=== PATIENT | female | born 1955 | race Caucasian/White ===

== ENCOUNTER 2016-12-21 13:15 | Inpatient (IN) | payer OTHER ==
[~2016-12-21] VITALS: Ht 160 cm; Wt 95.2 kg
[2016-12-21] MEDS ORDERED: ACETAMINOPHEN 500 MG TAB PO STA (13:49)
[2016-12-21] MEDS ORDERED: ONDANSETRON INJ 2 MG/ML 2 ML VIAL IV STA (13:49)
[2016-12-21] MEDS ORDERED: SODIUM CHLORIDE 0.9% 1000ML 1,000 ML IV STA (13:59)
[2016-12-21 14:36] LABS: ISTAT CREATININE 1.1 mg/dl (0.6-1.3); ISTAT HEMOGLOBIN 9.9 g/dl (12.0-16.0); ISTAT IONIZED CALCIUM 1.17 mmol/l (1.12-1.32)
[2016-12-21 14:38] LABS: PARTIAL THROMBOPLASTIN RATIO 0.9; PROTHROMBIN TIME (PATIENT) 10.8 SECONDS (9.0-12.0)
[2016-12-21 14:43] LABS: BUN/CREATININE RATIO 11.3 (10-20); CALCIUM 8.4 mg/dl (8.5-10.1); CREATININE 1.2 mg/dl (0.60-1.20); MAGNESIUM 1.9 mg/dl (1.8-2.4); POTASSIUM 4.2 mmol/L (3.5-5.1)
--- NOTE | 2016-12-21 14:49 | DIAGNOSTIC IMAGING REPORT ---
HEAD CT NONCONTRAST CT DOSE: 537.48 mGy.cm HISTORY: new seizure today, hx of colon CA, eval ICH, mets TECHNIQUE: Multiaxial CT images of the head were performed without the use of intravenous contrast. Automated exposure control was utilized for this study. Comparison: None. Findings: The paranasal sinuses and mastoid air cells are clear. The calvarium and skull base are intact. The ventricles and sulci are within normal limits. There is no mass, hematoma, midline shift, or acute infarct. Impression: No acute intracranial abnormality. If this is the patient's first reported seizure, then follow-up brain MRI is recommended for further evaluation. Electronically signed by: Adalberto Choe M.D. 12/21/2016 2:48 PM Dictated Date/Time: 12/21/2016 2:45 PM
[2016-12-21 14:54] LABS: PHOSPHORUS 1.6 mg/dl (2.5-4.9); THYROID STIMULATING HORMONE 5.36 uIu/ml (0.300-4.500)
[2016-12-21] MEDS ORDERED: PROMETHAZINE HCL INJ 25 MG/ML 1 ML VIAL IV STA (14:58)
[2016-12-21 15:00] LABS: ANISOCYTOSIS PRESENT; BASO % 0.5 %; BASO ABS # 0.01 K/uL (0-0.2); COMPLETE YES; EOS % 3.8 %; HEMATOCRIT 31.1 % (37-47); IG% 0.5 %; LYMPH % 36.3 %; LYMPH ABS # 0.77 K/uL (1.2-3.4); MEAN CORPUSCULAR HEMOGLOBIN 33.1 pg (25-34); MEAN CORPUSCULAR HGB CONC 33.1 g/dl (32-36); MONO % 7.5 %; NEUT % 51.4 %; PLATELET COUNT 87 K/uL (130-400); PLT ESTIMATE DECREASED; POLYCHROMASIA 1+; RED BLOOD COUNT 3.11 M/uL (4.2-5.4); WHITE BLOOD COUNT 2.12 K/uL (4.8-10.8)
[2016-12-21] MEDS ORDERED: MoRPHine SULFATE 10 MG/ML CARP/VIAL IV PRN (15:00)
--- NOTE | 2016-12-21 15:00 | DIAGNOSTIC IMAGING REPORT ---
SINGLE VIEW CHEST CLINICAL HISTORY: Seizure. History of pulmonary metastatic disease. FINDINGS: An AP, portable, upright chest radiograph is obtained. No prior studies are available for comparison at the time of dictation. The examination is degraded by portable technique and patient rotation. A left subclavian central venous infusion port is in place. The heart is top normal for projection. The pulmonary vasculature is noncongested. There is no airspace consolidation typical for pneumonia or pleural effusion. There are several pulmonary nodules measuring up to 2 cm. This is consistent with the reported clinical history of pulmonary metastatic disease. No pneumothorax is seen. The skeletal structures are osteopenic. The bony thorax is grossly intact. IMPRESSION: 1. No acute cardiopulmonary abnormality is seen. 2. There are numerous pulmonary nodules identified consistent with the reported clinical history of pulmonary metastatic disease. Electronically signed by: Zack Arita M.D. 12/21/2016 2:59 PM Dictated Date/Time: 12/21/2016 2:57 PM
--- NOTE | 2016-12-21 15:03 | EMERGENCY ROOM VISIT NOTE ---
History First contact with patient: 13:43 Chief Complaint: SEIZURE Stated Complaint: dizzy, seizure Nursing Triage Summary: Patient arrives via ALS from grandsons graduation with complaints of seizure like activity. According to ems the family stated she was stumbling and then collapsed onto football field. No seizure history. History of DM, and colon cancer - diagnosed in 2007 was in remission until 2016 and now metastasized; pt gets chemo every Friday. Patient was responsive but post ictal when ems arrived on scene. BSG from ems was 80. History of Present Illness The patient is a 61 year old female who presents to the Emergency Room with complaints of seizure that occurred approximately one hour ago. Seizure was witnessed by multiple family members, who states she was stumbling and not acting herself, when she began to collapse. She was caught by family members and lowered to the ground. Per family she was shaking all over her body, nonresponsive, episode lasted approximately 1 minute. Patient was confused for approximately 30 minutes after the seizure activity and amnestic to the event. She did bite her tongue during the episode, denies vomiting, denies urinary incontinence. No seizure history, this is a first-time seizure for this patient. Medical history significant for colon cancer and metastasis to the lungs, she is currently receiving chemotherapy every 2 weeks, last chemotherapy was 9 days ago. Patient complains of a headache and nausea. She denies vision changes, neck pain, chest pain, shortness of breath, abdominal pain, vomiting, diarrhea, urinary symptoms, fevers/chills, or recent illness. Review of Systems GENERAL: Denies fevers, chills, malaise, fatigue, unintentional weight changes. HEENT: Denies dizziness, visual problems, hearing loss, tinnitus. Denies difficulty swallowing or oral lesions. PULMONARY: Denies cough, shortness of breath, sputum production or hemoptysis. CARDIOVASCULAR: Denies chest pain, palpitations, dyspnea on exertion, orthopnea or peripheral edema. GASTROINTESTINAL: + Nausea. Denies diarrhea, constipation, vomiting, or abdominal pain. GENITOURINARY: Denies dysuria, frequency, urgency or nocturia. NEUROLOGIC: + Headache. Denies history of epilepsy, CVA, TIA or chronic headaches. MUSCULOSKELETAL: Denies history of joint tenderness/swelling. SKIN: Denies rashes or lesions. PSYCHIATRIC: Denies history of depression or mental illness. ENDOCRINE: Denies history of diabetes, thyroid disorders, abnormal hair growth or sexual dysfunction. Social History Smoking Status: Former Smoker Current/Historical Medications Scheduled Biotin (Biotin), 1,000 MCG PO DAILY Cholecalciferol (Vitamin D3), 2,000 UNITS PO QID Citalopram Hydrobromide (Citalopram Hydrobromide), 1 TAB PO QID Cyanocobalamin (Vitamin B-12), 2,500 MCG PO DAILY Folic Acid (Folic Acid), 400 MCG PO DAILY Glimepiride (Glimepiride), 1 TAB PO QID Metformin HCl (Metformin HCl), 500 MG PO QID Omeprazole (Prilosec), 20 MG PO QID Scheduled PRN Diphenoxylate/Atropine (Lomotil), 2 TAB PO QID PRN for Diarrhea Hydrocodone/Acetaminophen 7.5MG/325MG ([place] 7.5MG/325MG), 0.5 TAB PO Q6 PRN for Pain Lorazepam (Ativan), 0.5 MG PO QID PRN for Anxiety Meclizine Hcl (Meclizine Hcl), 1 TAB PO UD PRN for Nausea Miscellaneous Medications Bevacizumab (Avastin) Allergies Coded Allergies: Codeine (Unverified Allergy, Unknown, ., 12/21/16) Physical Exam Vital Signs Date Time Temp Pulse Resp B/P (MAP) Pulse Ox O2 Delivery O2 Flow Rate FiO2 12/21/16 20:10 76 16 173/72 96 Room Air 12/21/16 18:38 64 18 158/84 95 Room Air 12/21/16 17:18 64 18 166/78 95 12/21/16 15:22 69 18 189/94 100 Room Air 12/21/16 13:40 94 Room Air 12/21/16 13:28 73 12/21/16 13:24 36.9 81 18 149/125 98 Room Air Physical Exam CONSTITUTIONAL: No acute distress. Well appearing and well nourished. Alert and oriented X 4 with normal affect. GCS 15. HEENT: Normocephalic, atraumatic. Pupils equal, round and reactive to light, EOMI. TMs normal. Pharynx normal. Small superficial laceration left anterior tongue, no active bleeding. NECK: Supple, full active range of motion without discomfort. RESPIRATORY: Clear to auscultation bilaterally with no wheezing, crackles, rhonchi or stridor. Equal expansion bilaterally. CARDIOVASCULAR: Regular rate and rhythm with no murmurs, rubs or gallops. Normal peripheral perfusion. No edema. GASTROINTESTINAL: Soft, nontender, nondistended. Bowel sounds present in all quadrants. MUSCULOSKELETAL: Full range of motion of all joints without discomfort. INTEGUMENTARY: No rash or other significant dermatologic conditions noted. NEUROLOGIC: Cranial nerves II-XII grossly intact. No focal neurologic deficits noted. Normal strength, normal sensation, normal coordination. Medical Decision & Procedures ER Provider Diagnostic Interpretation: HEAD CT NONCONTRAST CT DOSE: 537.48 mGy.cm HISTORY: new seizure today, hx of colon CA, eval ICH, mets TECHNIQUE: Multiaxial CT images of the head were performed without the use of intravenous contrast. Automated exposure control was utilized for this study. Comparison: None. Findings: The paranasal sinuses and mastoid air cells are clear. The calvarium and skull base are intact. The ventricles and sulci are within normal limits. There is no mass, hematoma, midline shift, or acute infarct. Impression: No acute intracranial abnormality. If this is the patient's first reported seizure, then follow-up brain MRI is recommended for further evaluation. ----- MRI OF THE BRAIN COMBO CLINICAL HISTORY: New onset seizure. Reported history of metastatic colon cancer. COMPARISON STUDY: CT of the brain dated 12/21/2016. TECHNIQUE: MRI of the brain was performed utilizing various T1 and T2-weighted sequences in the axial, sagittal, and coronal planes. Contrast-enhanced sequences were acquired following the administration of 9.6 cc of Gadavist. The examination is performed using the seizure protocol. FINDINGS: Brain parenchyma: There are age-related involutional changes noting minimal subcortical and periventricular microangiopathic disease. There is no hemorrhage or mass effect. There is no restricted diffusion to suggest acute ischemia. No enhancing mass lesion is identified on the postcontrast images. Adams-white matter differentiation is preserved. No extra-axial fluid collection is seen. The cerebellar tonsils are normal in configuration. A developmental venous anomaly is incidentally noted in the right cerebellar hemisphere. The hippocampi are normal and symmetric. Ventricles, sulci, and cisterns: Prominent secondary to involutional change. Pituitary and sella: Unremarkable. Intracranial vasculature: Normal flow voids are maintained at the skull base. Orbits: The bony orbits are grossly intact. Orbital contents are normal in appearance. Sinuses and mastoids: There is a small retention cyst in the right maxillary antrum. The paranasal sinuses are otherwise clear. The mastoid air cells are well pneumatized. Calvarium: Unremarkable. Cervical cord: Partially visualized cervical spinal cord is normal in morphology and signal intensity. IMPRESSION: No acute intracranial abnormality. Specifically, there is no evidence of intracranial metastatic disease. Laboratory Results 12/21/16 14:17 Red Blood Count 3.11, Mean Corpuscular Volume 100.0, Mean Corpuscular Hemoglobin 33.1, Mean Corpuscular Hemoglobin Concent 33.1, Neutrophils (%) (Auto ) 51.4, Lymphocytes (%) (Auto) 36.3, Monocytes (%) (Auto) 7.5, Eosinophils (%) ( Auto) 3.8, Basophils (%) (Auto) 0.5, Neutrophils # (Auto) 1.09, Lymphocytes # ( Auto) 0.77, Monocytes # (Auto) 0.16, Eosinophils # (Auto) 0.08, Basophils # ( Auto) 0.01 12/21/16 14:17 Test 12/21/16 14:17 12/21/16 14:21 12/21/16 16:35 12/21/16 20:03 White Blood Count 2.12 K/uL (4.8-10.8) Red Blood Count 3.11 M/uL (4.2-5.4) Hemoglobin 10.3 g/dL (12.0-16.0) Hematocrit 31.1 % (37-47) Mean Corpuscular Volume 100.0 fL (80-100) Mean Corpuscular Hemoglobin 33.1 pg (25-34) Mean Corpuscular Hemoglobin Concent 33.1 g/dl (32-36) Platelet Count 87 K/uL (130-400) Neutrophils (%) (Auto) 51.4 % Lymphocytes (%) (Auto) 36.3 % Monocytes (%) (Auto) 7.5 % Eosinophils (%) (Auto) 3.8 % Basophils (%) (Auto) 0.5 % Neutrophils # (Auto) 1.09 K/uL (1.4-6.5) Lymphocytes # (Auto) 0.77 K/uL (1.2-3.4) Monocytes # (Auto) 0.16 K/uL (0.11-0.59) Eosinophils # (Auto) 0.08 K/uL (0-0.5) Basophils # (Auto) 0.01 K/uL (0-0.2) RDW Standard Deviation 53.5 fL (36.4-46.3) RDW Coefficient of Variation 14.9 % (11.5-14.5) Immature Granulocyte % (Auto) 0.5 % Immature Granulocyte # (Auto) 0.01 K/uL (0.00-0.02) Platelet Estimate DECREASED Polychromasia 1+ Anisocytosis PRESENT Macrocytosis PRESENT Prothrombin Time 10.8 SECONDS (9.0-12.0) Prothromb Time International Ratio 1.0 (0.9-1.1) Activated Partial Thromboplast Time 24.6 SECONDS (21.0-31.0) Partial Thromboplastin Ratio 0.9 Est Creatinine Clear Calc Drug Dose 52.9 ml/min Estimated GFR () 55.7 Estimated GFR (Non- 48.1 BUN/Creatinine Ratio 11.3 (10-20) Calcium Level 8.4 mg/dl (8.5-10.1) Phosphorus Level 1.6 mg/dl (2.5-4.9) Magnesium Level 1.9 mg/dl (1.8-2.4) Total Bilirubin 0.6 mg/dl (0.2-1) Direct Bilirubin 0.1 mg/dl (0-0.2) Aspartate Amino Transf (AST/SGOT) 30 U/L (15-37) Alanine Aminotransferase (ALT/SGPT) 26 U/L (12-78) Alkaline Phosphatase 76 U/L (45-117) Total Protein 6.3 gm/dl (6.4-8.2) Albumin 3.2 gm/dl (3.4-5.0) Thyroid Stimulating Hormone (TSH) 5.360 uIu/ml (0.300-4.500) Bedside Hemoglobin 9.9 g/dl (12.0-16.0) Bedside Hematocrit 29 % (37-47) Bedside Sodium 141 mEq/L (135-144) Bedside Potassium 4.0 mEq/L (3.3-5.0) Bedside Chloride 106 mEq/L (101-112) Bedside Total CO2 23 mEq/l (24-31) Anion Gap 18.0 mmol/L (16-25) Bedside Blood Urea Nitrogen 14 mg/dl (7-18) Bedside Creatinine 1.1 mg/dl (0.6-1.3) Bedside Glucose (other) 88 mg/dl (70-99) Bedside Ionized Calcium (Rajani) 1.17 mmol/l (1.12-1.32) Urine Color YELLOW Urine Appearance CLEAR (CLEAR) Urine pH 6.5 (4.5-7.5) Urine Specific [place] 1.011 (1.000-1.030) Urine Protein 2+ (NEG) Urine Glucose (UA) NEG (NEG) Urine Ketones NEG (NEG) Urine Occult Blood 2+ (NEG) Urine Nitrite NEG (NEG) Urine Bilirubin NEG (NEG) Urine Urobilinogen NEG (NEG) Urine Leukocyte Esterase NEG (NEG) Urine WBC (Auto) 1-5 /hpf (0-5) Urine RBC (Auto) 10-30 /hpf (0-4) Urine Hyaline Casts (Auto) 1-5 /lpf (0-5) Urine Epithelial Cells (Auto) 20-30 /lpf (0-5) Urine Bacteria (Auto) NEG (NEG) Bedside Glucose 67 mg/dl (70-90) Medications Administered Medications (Trade) Dose Ordered Sig/Scott Route Start Time Stop Time Status Last Admin Dose Admin Ondansetron HCl (Zofran Inj) 4 mg NOW STAT IV 12/21/16 13:49 12/21/16 14:00 DC 12/21/16 14:21 4 MG Acetaminophen (Tylenol Tab) 1,000 mg NOW STAT PO 12/21/16 13:49 12/21/16 14:00 DC 12/21/16 14:22 1,000 MG Sodium Chloride 1,000 ml @ 999 mls/hr Q1H1M STAT IV 12/21/16 13:59 12/21/16 14:59 DC 12/21/16 14:21 999 MLS/HR Promethazine HCl (Phenergan Inj) 12.5 mg NOW STAT IV 12/21/16 14:58 12/21/16 15:00 DC 12/21/16 14:58 12.5 MG Morphine Sulfate (MoRPHine SULFATE INJ) 6 mg Q1H PRN IV 12/21/16 15:00 12/21/16 22:25 DC 12/21/16 15:18 6 MG Ketorolac Tromethamine (Toradol Inj) 15 mg NOW STAT IV 12/21/16 19:53 12/21/16 19:55 DC 12/21/16 19:59 15 MG ECG Indication: altered mental status (seizure) Rate (beats per minute): 68 Rhythm: normal sinus Findings: no acute ischemic change Medical Decision CC: Patient presenting with complaint of seizure Interpretation of Labs: pancytopenia (suspected secondary to active chemotherapy treatment), not neutropenic, no significant electrolyte abnormalities, renal function within normal limits, normal liver function, no UTI. Medication Reconciliation: I attest that I have personally reviewed the patient' s current medication list. Vital signs review: I reviewed the patient's vital signs and interpret them as follows: T: Afebrile; BP: Hypertensive; HR: WNL; RR: WNL; Pulse Ox: WNL. Blood pressure screening: The patient was found to have an elevated blood pressure and was encouraged to follow with her primary doctor for recheck and further treatment upon discharge from the hospital. Differential Diagnosis: Includes, but not limited to new onset seizure, electrolyte imbalance, dehydration, syncope, ICH, brain metastasis, mass effect Summary of ED Course: Patient was evaluated at bedside, history of physical exam performed. She has a known history of Colon CA with mets to the lungs, on chemotherapy. She is alert and oriented, no focal deficits noted on exam. Pt is returned to her mental status baseline per family. GCS is 15. She is complaining of a headache and persistent nausea since the seizure. Orders were placed at bedside for labs, UA, tylenol and zofran to treat headache and nausea, CT of the head to evaluate for ICH, mass effect. Patient discussed with Dr. Matthews, who agrees with my assessment and plan. On reassessment, patient continues to complain of severe headache and nausea. Morphine and Phenergan ordered by Dr. Matthews. Labs reviewed, as above, no apparent acute abnormalities CT of the head reviewed, no acute abnormalities noted. Call placed to [facility] at 4:35pm. I spoke with Dr. Dietz, [facility] insulation sprayer, who recommends brain MRI with and without contrast MRI results reviewed, no acute abnormalities. Specifically no evidence of metastatic disease. Discussed with Dr. Matthews, feel the patient is high risk due to complex medical history, will admit for evaluation by neurology to further evaluate the seizure. Pt prefers to be transferred to [facility], however they are on diversion and are not accepting any transfers at this time. Will admit to [facility] Hospitalist service , Dr. Whitfield. I discussed with the patient and her family, she is agreeable to this plan. Patient reassessed multiple times throughout ED stay, her headache and nausea greatly improved after morphine and phenergan. She did have some hypoglycemia on repeat POC glucose, she was given something to eat and drink. Pt stable at time of admission. Impression Primary Impression: New onset seizure Departure Information Referrals Nora Rosa D.O. (PCP) Patient Instructions My [facility]
--- NOTE | 2016-12-21 15:09 | EMERGENCY ROOM VISIT NOTE ---
ED Visit Note First contact with patient: 13:43 61-year-old female with history of colon metastasis was fully evaluated by Jamila Oliver NP. Please see her note. I also independently evaluated the patient. The patient is here after a seizure. She continues to complain of nausea and vomiting. She also complains of a headache. Multiple labs and imaging were evaluated.
[2016-12-21 17:04] LABS: URINE APPEARANCE CLEAR (CLEAR); URINE BILIRUBIN NEG (NEG); URINE COLOR YELLOW; URINE EPITHELIAL CELL AUTO 20-30 /lpf (0-5); URINE NITRITE NEG (NEG); URINE PH 6.5 (4.5-7.5); URINE SPECIFIC GRAVITY 1.011 (1.000-1.030); UROBILINOGEN NEG (NEG)
[2016-12-21 17:11] LABS: MANUAL MICROSCOPIC REQUIRED? NO
[2016-12-21 17:31] LABS: REVIEW REQ? YES
[2016-12-21] MEDS ORDERED: GLC500 PO (17:37)
[2016-12-21] MEDS ORDERED: CYAN1SUB12 PO (17:37)
[2016-12-21] MEDS ORDERED: BIOT1TAB5 PO (17:37)
[2016-12-21] MEDS ORDERED: HYDR-3983 PO (17:37)
[2016-12-21] MEDS ORDERED: PRLSR20 PO (17:37)
[2016-12-21] MEDS ORDERED: GLIM4TAB2 PO (17:37)
[2016-12-21] MEDS ORDERED: CITA10TA4 PO (17:37)
[2016-12-21] MEDS ORDERED: MECL1TAB42 PO (17:37)
[2016-12-21] MEDS ORDERED: CHOL20007 PO (17:37)
[2016-12-21] MEDS ORDERED: LORA-741 PO (17:37)
[2016-12-21] MEDS ORDERED: DIPH-416 PO (17:37)
[2016-12-21] MEDS ORDERED: FLV400 PO (17:37)
[2016-12-21] MEDS ORDERED: AVSI100 (17:53)
--- NOTE | 2016-12-21 18:32 | DIAGNOSTIC IMAGING REPORT ---
MRI OF THE BRAIN COMBO CLINICAL HISTORY: New onset seizure. Reported history of metastatic colon cancer. COMPARISON STUDY: CT of the brain dated 12/21/2016. TECHNIQUE: MRI of the brain was performed utilizing various T1 and T2-weighted sequences in the axial, sagittal, and coronal planes. Contrast-enhanced sequences were acquired following the administration of 9.6 cc of Gadavist. The examination is performed using the seizure protocol. FINDINGS: Brain parenchyma: There are age-related involutional changes noting minimal subcortical and periventricular microangiopathic disease. There is no hemorrhage or mass effect. There is no restricted diffusion to suggest acute ischemia. No enhancing mass lesion is identified on the postcontrast images. Adams-white matter differentiation is preserved. No extra-axial fluid collection is seen. The cerebellar tonsils are normal in configuration. A developmental venous anomaly is incidentally noted in the right cerebellar hemisphere. The hippocampi are normal and symmetric. Ventricles, sulci, and cisterns: Prominent secondary to involutional change. Pituitary and sella: Unremarkable. Intracranial vasculature: Normal flow voids are maintained at the skull base. Orbits: The bony orbits are grossly intact. Orbital contents are normal in appearance. Sinuses and mastoids: There is a small retention cyst in the right maxillary antrum. The paranasal sinuses are otherwise clear. The mastoid air cells are well pneumatized. Calvarium: Unremarkable. Cervical cord: Partially visualized cervical spinal cord is normal in morphology and signal intensity. IMPRESSION: No acute intracranial abnormality. Specifically, there is no evidence of intracranial metastatic disease. Electronically signed by: Zack Arita M.D. 12/21/2016 6:30 PM Dictated Date/Time: 12/21/2016 6:26 PM
[2016-12-21] MEDS ORDERED: KETOROLAC TROMETHAMINE 30 MG/ML VIAL IV STA (19:53)
[2016-12-21] MEDS ORDERED: ACETAMINOPHEN 325 MG TAB PO PRN (20:45)
[2016-12-21] MEDS ORDERED: HYDROCODONE/ACETAMINOPHEN 7.5/325MG TAB PO PRN (20:45)
[2016-12-21] MEDS ORDERED: LORAZEPAM 0.5 MG TAB PO PRN (20:45)
[2016-12-21] MEDS ORDERED: MECLIZINE HCL 25 MG TAB PO PRN (20:45)
[2016-12-21] MEDS ORDERED: NITROGLYCERIN 0.4 MG SL PER TAB CHARGE SL PRN (20:45)
[2016-12-21] MEDS ORDERED: DIPHENOXYLATE/ATROPINE 2.5/0.025MG TAB PO PRN (20:45)
[2016-12-21] MEDS ORDERED: GLUCOSE 40% GEL 15 GM TUBE PO PRN (21:30)
[2016-12-21] MEDS ORDERED: GLUCAGON FOR INJ 1 MG VIAL SQ PRN (21:30)
[2016-12-21] MEDS ORDERED: DEXTROSE 50% 50 ML SYR IV PRN (21:30)
[2016-12-21] MEDS ORDERED: GLUCOSE 10 TABS/TUBE PO PRN (21:30)
[2016-12-21] MEDS ORDERED: ONDANSETRON INJ 2 MG/ML 2 ML VIAL IV PRN (21:30)
--- NOTE | 2016-12-21 21:43 | History and Physical ---
History & Physical Date & Time of Service: Dec 21, 2016 at 21:29 Chief Complaint: dizzy, seizure Primary Care Physician: Nora Rosa D.O. 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 When her daughter went to the patient's side, she noticed her to be pale, her eyes rolled back in her head, her son-in-law gradually lowered her to the ground, and she then went in to an interval of shaking. She has not had any previous occurrence of seizures. She did not have any loss of bowel or bladder control. This time in the emergency department she feels a bit tired but otherwise normal. She has not had any intervals of illness prior to this as predisposing factors. She has not had any recent trauma, any recent travel or sick exposures. Her last chemotherapy was 8 days ago. She is also developed some generalized headaches, and reports that both headaches and seizures were on of the side effects that she was warned about regarding her present chemotherapy. Social History Smoking Status: Former Smoker Smokeless Tobacco Use: No Alcohol Use: none Drug Use: none Marital Status: Housing status: lives with family Multi-Drug Resistant Organisms History of MDRO: No Allergies Coded Allergies: Codeine (Unverified Allergy, Unknown, ., 12/21/16) Home Medications Scheduled Biotin (Biotin), 1,000 MCG PO DAILY Cholecalciferol (Vitamin D3), 2,000 UNITS PO QID Citalopram Hydrobromide (Citalopram Hydrobromide), 1 TAB PO QID Cyanocobalamin (Vitamin B-12), 2,500 MCG PO DAILY Folic Acid (Folic Acid), 400 MCG PO DAILY Glimepiride (Glimepiride), 1 TAB PO QID Metformin HCl (Metformin HCl), 500 MG PO QID Omeprazole (Prilosec), 20 MG PO QID Scheduled PRN Diphenoxylate/Atropine (Lomotil), 2 TAB PO QID PRN for Diarrhea Hydrocodone/Acetaminophen 7.5MG/325MG ([place] 7.5MG/325MG), 0.5 TAB PO Q6 PRN for Pain Lorazepam (Ativan), 0.5 MG PO QID PRN for Anxiety Meclizine Hcl (Meclizine Hcl), 1 TAB PO UD PRN for Nausea Miscellaneous Medications Bevacizumab (Avastin) Review of Systems The patient denies chest pain, palpitations, shortness of breath, cough, lower extremity swelling, vision change, hearing change, sore throat, fevers, chills, sweats, weight change, nausea, vomiting, abdominal pain, pelvic pain, blood in urine or stool, dysuria, urinary frequency or urgency, lightheadedness, dizziness, memory loss, rash, abnormal bruising or bleeding, imbalance, focal or generalized weakness, numbness or tingling in arms or legs, arthralgias or myalgias, back or neck pain, night sweats, or allergy symptoms. The review of systems is otherwise negative other than for that already noted above, and at least 10 systems have been reviewed. Physical Exam Vital Signs Date Time Temp Pulse Resp B/P (MAP) Pulse Ox O2 Delivery O2 Flow Rate FiO2 12/21/16 20:10 76 16 173/72 96 Room Air 12/21/16 18:38 64 18 158/84 95 Room Air 12/21/16 17:18 64 18 166/78 95 12/21/16 15:22 69 18 189/94 100 Room Air 12/21/16 13:40 94 Room Air 12/21/16 13:28 73 12/21/16 13:24 36.9 81 18 149/125 98 Room Air The patient is awake, well-developed and adequately nourished, alert and oriented 3, normocephalic and atraumatic, lying in bed and in no acute distress. HEENT--PERRL, EOMI, mucous membranes and oropharynx normal. Neck--supple, no JVD or bruits, thyroid normal, trachea midline, no adenopathy. Heart--normal S1 and S2, no extra beats, no murmurs, rubs or gallops. Lungs--clear bilaterally but diminished throughout, no respiratory distress, no accessory muscle use. Abdomen--normal bowel sounds and soft, nontender and nondistended, no hernias or masses, no organomegaly and morbidly obese. Extremities--no cyanosis, clubbing or edema. There are good distal pulses b/l. Dermatologic--normal skin turgor, normal color, warm and dry, no abnormal lymph nodes, no rash. Neurologic--cranial nerves II through XII grossly intact, motor and sensory examination normal. Rheumatologic--normal range of motion, nontender, muscles and joints. Psychiatric--normal affect. Diagnostics Laboratory Results Results Past 24 Hours Test 12/21/16 14:16 12/21/16 14:17 12/21/16 14:21 12/21/16 16:35 Range/Units Bedside Glucose 89 70-90 mg/dl White Blood Count 2.12 4.8-10.8 K/uL Red Blood Count 3.11 4.2-5.4 M/uL Hemoglobin 10.3 12.0-16.0 g/dL Hematocrit 31.1 37-47 % Mean Corpuscular Volume 100.0 80-100 fL Mean Corpuscular Hemoglobin 33.1 25-34 pg Mean Corpuscular Hemoglobin Concent 33.1 32-36 g/dl Platelet Count 87 130-400 K/uL Neutrophils (%) (Auto) 51.4 % Lymphocytes (%) (Auto) 36.3 % Monocytes (%) (Auto) 7.5 % Eosinophils (%) (Auto) 3.8 % Basophils (%) (Auto) 0.5 % Neutrophils # (Auto) 1.09 1.4-6.5 K/uL Lymphocytes # (Auto) 0.77 1.2-3.4 K/uL Monocytes # (Auto) 0.16 0.11-0.59 K/uL Eosinophils # (Auto) 0.08 0-0.5 K/uL Basophils # (Auto) 0.01 0-0.2 K/uL RDW Standard Deviation 53.5 36.4-46.3 fL RDW Coefficient of Variation 14.9 11.5-14.5 % Immature Granulocyte % (Auto) 0.5 % Immature Granulocyte # (Auto) 0.01 0.00-0.02 K/uL Platelet Estimate DECREASED Polychromasia 1+ Anisocytosis PRESENT Macrocytosis PRESENT Prothrombin Time 10.8 9.0-12.0 SECONDS Prothromb Time International Ratio 1.0 0.9-1.1 Activated Partial Thromboplast Time 24.6 21.0-31.0 SECONDS Partial Thromboplastin Ratio 0.9 Sodium Level 143 136-145 mmol/L Potassium Level 4.2 3.5-5.1 mmol/L Chloride Level 110 98-107 mmol/L Carbon Dioxide Level 24 21-32 mmol/L Anion Gap 9.0 18.0 16-25 mmol/L Blood Urea Nitrogen 14 7-18 mg/dl Creatinine 1.20 0.60-1.20 mg/dl Est Creatinine Clear Calc Drug Dose 52.9 ml/min Estimated GFR () 55.7 Estimated GFR (Non- 48.1 BUN/Creatinine Ratio 11.3 10-20 Random Glucose 88 70-99 mg/dl Calcium Level 8.4 8.5-10.1 mg/dl Phosphorus Level 1.6 2.5-4.9 mg/dl Magnesium Level 1.9 1.8-2.4 mg/dl Total Bilirubin 0.6 0.2-1 mg/dl Direct Bilirubin 0.1 0-0.2 mg/dl Aspartate Amino Transf (AST/SGOT) 30 15-37 U/L Alanine Aminotransferase (ALT/SGPT) 26 12-78 U/L Alkaline Phosphatase 76 45-117 U/L Total Protein 6.3 6.4-8.2 gm/dl Albumin 3.2 3.4-5.0 gm/dl Thyroid Stimulating Hormone (TSH) 5.360 0.300-4.500 uIu/ml Bedside Hemoglobin 9.9 12.0-16.0 g/dl Bedside Hematocrit 29 37-47 % Bedside Sodium 141 135-144 mEq/L Bedside Potassium 4.0 3.3-5.0 mEq/L Bedside Chloride 106 101-112 mEq/L Bedside Total CO2 23 24-31 mEq/l Bedside Blood Urea Nitrogen 14 7-18 mg/dl Bedside Creatinine 1.1 0.6-1.3 mg/dl Bedside Glucose (other) 88 70-99 mg/dl Bedside Ionized Calcium (Rajani) 1.17 1.12-1.32 mmol/l Urine Color YELLOW Urine Appearance CLEAR CLEAR Urine pH 6.5 4.5-7.5 Urine Specific [place] 1.011 1.000-1.030 Urine Protein 2+ NEG Urine Glucose (UA) NEG NEG Urine Ketones NEG NEG Urine Occult Blood 2+ NEG Urine Nitrite NEG NEG Urine Bilirubin NEG NEG Urine Urobilinogen NEG NEG Urine Leukocyte Esterase NEG NEG Urine WBC (Auto) 1-5 0-5 /hpf Urine RBC (Auto) 10-30 0-4 /hpf Urine Hyaline Casts (Auto) 1-5 0-5 /lpf Urine Epithelial Cells (Auto) 20-30 0-5 /lpf Urine Bacteria (Auto) NEG NEG Test 12/21/16 20:03 Range/Units Bedside Glucose 67 70-90 mg/dl Diagnostic Radiology Patient Name: BRYAN KONG Unit Number: [id number] Dictated: 12/21/161456 Transcribed: 12/21/161456 EV Printed Date/Time: [~ rep prt dt]/[~ rep prt tm] [~ rep ct labl] - [~ rep ct ivnm] [facility] Radiology Department [place], [place] [id number] Dictated: 12/21/161456 Transcribed: 12/21/161456 EV Printed Date/Time: [~ rep prt dt]/[~ rep prt tm] [~ rep ct labl] - [~ rep ct ivnm] [~ rep ct add3]] SINGLE VIEW CHEST CLINICAL HISTORY: Seizure. History of pulmonary metastatic disease. FINDINGS: An AP, portable, upright chest radiograph is obtained. No prior studies are available for comparison at the time of dictation. The examination is degraded by portable technique and patient rotation. A left subclavian central venous infusion port is in place. The heart is top normal for projection. The pulmonary vasculature is noncongested. There is no airspace consolidation typical for pneumonia or pleural effusion. There are several pulmonary nodules measuring up to 2 cm. This is consistent with the reported clinical history of pulmonary metastatic disease. No pneumothorax is seen. The skeletal structures are osteopenic. The bony thorax is grossly intact. IMPRESSION: 1. No acute cardiopulmonary abnormality is seen. 2. There are numerous pulmonary nodules identified consistent with the reported clinical history of pulmonary metastatic disease. Electronically signed by: Zack Arita M.D. 12/21/2016 2:59 PM Dictated Date/Time: 12/21/2016 2:57 PM The status of this report is Signed. Draft = Not yet reviewed or approved by Radiologist. Signed = Reviewed and approved by Radiologist. <AttendingPhy></AttendingPhy> <FamilyPhy>Nora Rosa D.O.</FamilyPhy> < PrimaryPhy>Nora Rosa D.O.</PrimaryPhy> <UnitNumber>[id number]</ UnitNumber> <VisitNumber>[id number]</VisitNumber> <PatientName>BRYAN KONG</PatientName> <DateOfBirth>1955</DateOfBirth> <Location>[facility]</ Location> <ServiceDate>12/21/16</ServiceDate> <MNE>ESINDI</MNE> <OrderingPhy> Jamila Oliver STAFF PHYSICAL THERAPIST</OrderingPhy> <OrderingPhyMNE>f rep ord dr dyer</ OrderingPhyMNE> <DictatingPhyMNE>f rep dict dr dyer</DictatingPhyMNE> <CCListMNE> f rep ct mne</CCListMNE> <AdmittingPhyMNE>f pt admit dr dyer</AdmittingPhyMNE> < AttendingPhyMNE>f pt attend dr dyer</AttendingPhyMNE> <ConsultingPhyMNE>f pt consult dr dyer</ConsultingPhyMNE> <FamilyPhyMNE>f pt fam dr dyer</FamilyPhyMNE> <OtherPhyMNE>f pt other dr dyer</OtherPhyMNE> < PrimaryPhyMNE>f pt prim care dr dyer</PrimaryPhyMNE> <ReferringPhyMNE>f pt referring dr dyer</ReferringPhyMNE> Patient Name: BRYAN KONG Unit Number: [id number] Dictated: 12/21/161444 Transcribed: 12/21/161444 [facility] Printed Date/Time: [~ rep prt dt]/[~ rep prt tm] [~ rep ct labl] - [~ rep ct ivnm] [facility] [place] [address] Dictated: 12/21/161444 Transcribed: 12/21/161444 [employer] Printed Date/Time: [~ rep prt dt]/[~ rep prt tm] [~ rep ct labl] - [~ rep ct ivnm] [~ rep ct add3]] HEAD CT NONCONTRAST CT DOSE: 537.48 mGy.cm HISTORY: new seizure today, hx of colon CA, eval ICH, mets TECHNIQUE: Multiaxial CT images of the head were performed without the use of intravenous contrast. Automated exposure control was utilized for this study. Comparison: None. Findings: The paranasal sinuses and mastoid air cells are clear. The calvarium and skull base are intact. The ventricles and sulci are within normal limits. There is no mass, hematoma, midline shift, or acute infarct. Impression: No acute intracranial abnormality. If this is the patient's first reported seizure, then follow-up brain MRI is recommended for further evaluation. Electronically signed by: Adalberto hCoe M.D. 12/21/2016 2:48 PM Dictated Date/Time: 12/21/2016 2:45 PM The status of this report is Signed. Draft = Not yet reviewed or approved by Radiologist. Signed = Reviewed and approved by Radiologist. <AttendingPhy></AttendingPhy> <FamilyPhy>Nora Rosa D.O.</FamilyPhy> < PrimaryPhy>Nora Rosa D.O.</PrimaryPhy> <UnitNumber>[id number]</ UnitNumber> <VisitNumber>[id number]</VisitNumber> <PatientName>BRYAN KONG</PatientName> <DateOfBirth>1955</DateOfBirth> <Location>[facility]</ Location> <ServiceDate>12/21/16</ServiceDate> <MNE>ESINDI</MNE> <OrderingPhy> Jamila Oliver</OrderingPhy> <OrderingPhyMNE>f rep ord dr dyer</ OrderingPhyMNE> <DictatingPhyMNE>f rep dict dr dyer</DictatingPhyMNE> <CCListMNE> f rep ct manisha</CCListMNE> <AdmittingPhyMNE>f pt admit dr dyer</AdmittingPhyMNE> < AttendingPhyMNE>f pt attend dr dyer</AttendingPhyMNE> <ConsultingPhyMNE>f pt consult dr dyer</ConsultingPhyMNE> <FamilyPhyMNE>f pt fam dr dyer</FamilyPhyMNE> <OtherPhyMNE>f pt other dr dyer</OtherPhyMNE> < PrimaryPhyMNE>f pt prim care dr dyer</PrimaryPhyMNE> <ReferringPhyMNE>f pt referring dr dyer</ReferringPhyMNE> Patient Name: BRYAN KONG Unit Number: [id number] Dictated: 12/21/161825 Transcribed: 12/21/161825 EV Printed Date/Time: [~ rep prt dt]/[~ rep prt tm] [~ rep ct labl] - [~ rep ct ivnm] [facility] [place] [address] Dictated: 12/21/161825 Transcribed: 12/21/161825 EV Printed Date/Time: [~ rep prt dt]/[~ rep prt tm] [~ rep ct labl] - [~ rep ct ivnm] MRI OF THE BRAIN COMBO CLINICAL HISTORY: New onset seizure. Reported history of metastatic colon cancer. COMPARISON STUDY: CT of the brain dated 12/21/2016. TECHNIQUE: MRI of the brain was performed utilizing various T1 and T2-weighted sequences in the axial, sagittal, and coronal planes. Contrast-enhanced sequences were acquired following the administration of 9.6 cc of Gadavist. The examination is performed using the seizure protocol. FINDINGS: Brain parenchyma: There are age-related involutional changes noting minimal subcortical and periventricular microangiopathic disease. There is no hemorrhage or mass effect. There is no restricted diffusion to suggest acute ischemia. No enhancing mass lesion is identified on the postcontrast images. Adams-white matter differentiation is preserved. No extra-axial fluid collection is seen. The cerebellar tonsils are normal in configuration. A developmental venous anomaly is incidentally noted in the right cerebellar hemisphere. The hippocampi are normal and symmetric. Ventricles, sulci, and cisterns: Prominent secondary to involutional change. Pituitary and sella: Unremarkable. Intracranial vasculature: Normal flow voids are maintained at the skull base. Orbits: The bony orbits are grossly intact. Orbital contents are normal in appearance. Sinuses and mastoids: There is a small retention cyst in the right maxillary antrum. The paranasal sinuses are otherwise clear. The mastoid air cells are well pneumatized. Calvarium: Unremarkable. Cervical cord: Partially visualized cervical spinal cord is normal in morphology and signal intensity. IMPRESSION: No acute intracranial abnormality. Specifically, there is no evidence of intracranial metastatic disease. Electronically signed by: Zack Arita M.D. 12/21/2016 6:30 PM Dictated Date/Time: 12/21/2016 6:26 PM The status of this report is Signed. Draft = Not yet reviewed or approved by Radiologist. Signed = Reviewed and approved by Radiologist. <AttendingPhy></AttendingPhy> <FamilyPhy>Nora Rosa D.O.</FamilyPhy> < PrimaryPhy>Nora Rosa D.O.</PrimaryPhy> <UnitNumber>[id number]</ UnitNumber> <VisitNumber>[id number]</VisitNumber> <PatientName>BRYAN KONG</PatientName> <DateOfBirth>1955</DateOfBirth> <Location>[facility]</ Location> <ServiceDate>12/21/16</ServiceDate> <MNE>ESINDI</MNE> <OrderingPhy> Jamila Oliver STAFF PHYSICAL THERAPIST</OrderingPhy> <OrderingPhyMNE>f rep ord dr dyer</ OrderingPhyMNE> <DictatingPhyMNE>f rep dict dr dyer</DictatingPhyMNE> <CCListMNE> f rep ct manisha</CCListMNE> <AdmittingPhyMNE>f pt admit dr dyer</AdmittingPhyMNE> < AttendingPhyMNE>f pt attend dr dyer</AttendingPhyMNE> <ConsultingPhyMNE>f pt consult dr dyer</ConsultingPhyMNE> <FamilyPhyMNE>f pt fam dr dyer</FamilyPhyMNE> <OtherPhyMNE>f pt other dr dyer</OtherPhyMNE> < PrimaryPhyMNE>f pt prim care dr dyer</PrimaryPhyMNE> <ReferringPhyMNE>f pt referring dr dyer</ReferringPhyMNE> EKG EKG shows normal sinus rhythm at 68 bpm, there are no acute ST-T changes. Impression Assessment and Plan New onset seizure activity--patient underwent CT of the head and MRI the brain , both of which were normal, in particular did not show signs of metastatic disease. Since this is her first seizure, she would not be placed on any seizure medications. If she has a recurrent seizure overnight, will start Keppra IV. She'll be followed on telemetry for arrhythmia, frequent neurovascular checks, and seizure precautions. Consult neurology. Colon cancer with metastases to lung--her primary doctors are in [place]. Last chemotherapy was 8 days ago, she has follow-up appointments scheduled. No active issue at this time regarding this admission. Diabetes mellitus--continue glimepiride [address] on Accu- Cheks before meals and at bedtime with NovoLog coverage per scale. Depression/anxiety--continue citalopram and lorazepam. GERD--change omeprazole to pantoprazole per formulary interchange. Level of Care Telemetry Advanced Directives Existing Advance Directive: No Existing Living Will: No Existing Power of City Planning Aide: No Resuscitation Status FULL RESUSCITATION VTE Prophylaxis VTE Risk Assessment Done? Y/N: Yes Risk Level: Low Given or contraindicated: Garcia Mendez, SCD's
[2016-12-21 21:46] VITALS: O2SAT 95
[2016-12-21 21:54] VITALS: Ht 160 cm; Wt 95.2 kg
[2016-12-21 22:05] VITALS: BP 141/70; PULSE 72; TEMP 36.6; O2SAT 96
[2016-12-21] MEDS: CITALOPRAM 20 MG TAB PO SCH (22:51)
[2016-12-21] MEDS: PANTOprazole SOD 40 MG TAB PO SCH (22:51)
[2016-12-21] MEDS: CHOLECALCIFEROL 1000 INTER.UNIT TAB PO SCH (22:51)
[2016-12-22 02:34] VITALS: BP 132/65; PULSE 62; TEMP 36.5; O2SAT 99
[2016-12-22 06:24] LABS: BUN/CREATININE RATIO 10.2 (10-20); CALCIUM 8.2 mg/dl (8.5-10.1); CREATININE 1.3 mg/dl (0.60-1.20); MAGNESIUM 2.3 mg/dl (1.8-2.4); POTASSIUM 4.2 mmol/L (3.5-5.1)
[2016-12-22 06:26] LABS: HEMATOCRIT 30.8 % (37-47); MEAN CORPUSCULAR HEMOGLOBIN 33.1 pg (25-34); MEAN CORPUSCULAR HGB CONC 32.8 g/dl (32-36); MEAN PLATELET VOLUME 11.6 fL (7.4-10.4); PLATELET COUNT 88 K/uL (130-400); RED BLOOD COUNT 3.05 M/uL (4.2-5.4)
[2016-12-22 06:53] LABS: COMPLETE YES; LYMPH ABS # 1.01 K/uL (1.2-3.4)
[2016-12-22 07:51] VITALS: BP 133/73; PULSE 95; TEMP 36.8; O2SAT 96
[2016-12-22] MEDS: CHOLECALCIFEROL 1000 INTER.UNIT TAB PO SCH ×2 (08:44→13:00)
[2016-12-22] MEDS: CITALOPRAM 20 MG TAB PO SCH (08:45)
[2016-12-22] MEDS: INSULIN ASPART 100 UNITS/ML 3 ML PEN SC SCH ×2 (08:50→11:00)
[2016-12-22] MEDS ORDERED: FoLIC ACID TAB 400 MCG TAB PO SCH (09:00)
[2016-12-22] MEDS: PANTOprazole SOD 40 MG TAB PO SCH (09:00)
[2016-12-22] MEDS ORDERED: CYANOCOBALAMIN 500 MCG TAB (VIT B-12) PO SCH (09:00)
[2016-12-22] MEDS ORDERED: NON-FORMULARY MEDICATION (Biotin 1,000 MCG) PO SCH (09:00)
[2016-12-22] MEDS ORDERED: GLIMEPIRIDE 2 MG TAB PO SCH (09:00)
--- NOTE | 2016-12-22 09:20 | Neurology Consultation ---
Neurology Consultation Date of Consultation: Dec 22, 2016. Attending Physician: Emir Romero M.D. Primary Care Physician: Nora Rosa D.O. Reason for Consultation: Patient is a 61-year-old, was also see the request of Dr. Grande, for neurologic consultation regarding new onset seizure History of Present Illness Source: patient, caregiver, hospital records This patient has no history of previous seizures or significant neurologic problems. In 2007 she was diagnosed with colon cancer. She received surgical resection followed by some chemotherapy. She did very well with no recurrence or issues until the summer of 2015. She was then noted to have recurrence of colon cancer plus metastases in her lung. No further surgery was done and she never received radiation therapy. Chemotherapy with (I believe) 5-FU was initiated and several months ago a vast and was added. She receives these products about every 2 weeks and her last chemotherapy treatment was approximately 9 or 10 days ago. She has had some problem with stumbling over the last 3 weeks. She is not dizzy or lightheaded but just loses her balance. She has noted some numbness and tingling in her feet for several months now. Over the last 2 weeks she's had some frontal headaches. These are steady and a pressure sensation although they can occasionally be sharp. Typically they're just achy. Esns-tja-gnpxryy medications are no help. Hydrocodone can help. Patient was in her usual state of health and had a good day on December 20. She was out doing a lot of errands and had no issues. She awoke on December 21 around 0530 hours and was feeling well. She ate some light breakfast and was doing very well getting ready to go to her grandsons regulation of [employer] area high school. She left around 0930 hours and arrived around 1030 hours still feeling well. There were in the bleachers and she was noticing that when standing her balance was poor (although she did not fall). It was warm but not overly hot. She was drinking some water but had had nothing to eat since early that morning. She was not overly fatigued. After the ceremony they went down to the field to meet with family and without warning she had an event. She had no prodromal symptoms of dizziness, lightheadedness or other warnings. Apparently, she turned pale and her eyes rolled back collapsing to the ground but she was caught by family members. She then had a generalized tonic clonic type of activity lasting approximately a minute followed by up to 30 minutes of postevent confusion. She had bit her tongue someone the left but did not have urinary incontinence. She had no recall of the event, EMS arriving but she did wake up in the ambulance. She remembers being in the emergency room here. She arrived at the emergency room at 13-4 hours with a temperature 36.9, pulse 81 and regular, respiratory rate 18, and blood pressure 149/125. O2 saturation was 98%. She had no focal neurologic findings, meningeal signs, or encephalopathy in the emergency room. CT scan of the head was unremarkable. MRI of the brain, with and without contrast, was unremarkable with no tumor or stroke. I reviewed this film. CBC showed some mild anemia, low white count, and low platelets. TSH was mildly elevated and calcium was mildly low at 8.4. Phosphorus was low at 1.6. Magnesium was normal at 1.9 and glucose on admission was normal at 89 but overnight it dropped to 67. Overnight, she's had no further seizures and has no headache this morning. She feels back to her baseline with no symptoms out of the ordinary. Past Medical/Surgical History Medical Problems: (1) New onset seizure Status: Acute Colon cancer with metastases to the lungs, on chemotherapy, stable Nonspecific bifrontal headaches for 2 weeks Balance issues and numb feet consistent with polyneuropathy, likely from Avastin chemotherapy Long-standing history of diabetes depression, stable on 20 mg citalopram daily Family History Mother age 88 with Alzheimer's disease, diabetes, and coronary artery disease. Father at 73 from small cell lung cancer. Social History Patient quit cigarette smoking 30 years ago. Prior to that she was about a pack a day smoker for 10-20 years. 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 Patient has 4 children ranging in age from 44-39 and 10 grandchildren Smoking Status: Former smoker Smokeless Tobacco Use: No Alcohol Use: none Drug Use: none Marital Status: Housing Status: lives with family Occupation Status: retired Allergies Coded Allergies: Codeine (Unverified Allergy, Unknown, ., 12/21/16) Current Inpatient Medications Current Inpatient Medications Medications (Trade) Dose Ordered Sig/Scott Route Start Time Stop Time Status Last Admin Dose Admin Acetaminophen (Tylenol Tab) 650 mg Q4H PRN PO 12/21/16 20:45 01/20/17 20:44 Nitroglycerin (Nitrostat Tab) 0.4 mg UD PRN SL 12/21/16 20:45 01/20/17 20:44 Diphenoxylate HCl/ Atropine (Lomotil Tab) 2 tab QID PRN PO 12/21/16 20:45 01/20/17 20:44 Folic Acid (Folvite Tab) 400 mcg DAILY PO 12/22/16 09:00 01/21/17 08:59 12/22/16 08:45 400 MCG Acetaminophen/ Hydrocodone Bitart ([place] 7.5/325 Tab) 0.5 tab Q6 PRN PO 12/21/16 20:45 01/04/17 20:44 Lorazepam (Ativan Tab) 0.5 mg QID PRN PO 12/21/16 20:45 01/20/17 20:44 Cholecalciferol (Vitamin D Tab) 2,000 inter.unit QID PO 12/21/16 21:00 01/20/17 20:59 12/22/16 08:44 2,000 INTER.UNIT Citalopram Hydrobromide (celeXA TAB) 10 mg BID PO 12/21/16 21:00 01/20/17 20:59 12/22/16 08:45 10 MG Cyanocobalamin (Vitamin B-12 Tab) 2,500 mcg QAM PO 12/22/16 09:00 01/21/17 08:59 12/22/16 08:44 2,500 MCG Glimepiride (Amaryl Tab) 4 mg QAM PO 12/22/16 09:00 01/21/17 08:59 12/22/16 08:45 4 MG Meclizine HCl (Antivert Tab) 25 mg Q6H PRN PO 12/21/16 20:45 01/20/17 20:44 Pantoprazole Sodium (Protonix Tab) 40 mg BID PO 12/21/16 21:00 01/20/17 20:59 12/21/16 22:51 40 MG Ondansetron HCl (Zofran Inj) 4 mg Q6H PRN IV 12/21/16 21:30 01/20/17 21:29 Insulin Aspart (novoLOG ASPART) SLIDING SCALE If C... ACHS SC 12/22/16 07:00 01/21/17 06:59 12/22/16 08:50 3 UNITS Glucose (Glucose 40% Gel) UD PRN PO 12/21/16 21:30 01/20/17 21:29 Glucose (Glucose Chew Tab) 1 tabs UD PRN PO 12/21/16 21:30 01/20/17 21:29 Dextrose (Dextrose 50% 50ML Syringe) 50 ml UD PRN IV 12/21/16 21:30 01/20/17 21:29 Glucagon (Glucagon Inj) 1 mg UD PRN SQ 12/21/16 21:30 01/20/17 21:29 Review of Systems Constitutional: No weakness, No fatigue Eyes: No worsening of vision, No diplopia ENT: No hearing loss, No tinnitus Respiratory: No cough, No shortness of breath Cardiovascular: No chest pain, No palpitations Abdomen: No pain, No nausea Musculoskeletal: No joint pain, No muscle pain Genitourinary - Female: No dysuria, No urinary incontinence Neurologic: + numbness/tingling, + balance problems, No memory loss, No weakness, No vertigo Psychiatric: + depression symptoms, No anxiety Endocrine: No fatigue Hematologic / Lymphatic: No abnormal bleeding/bruising Integumentary: No rash Allergic / Immunologic: No hives Physical Exam Vital Signs (Past 24 Hrs): Date Time Temp Pulse Resp B/P (MAP) Pulse Ox O2 Delivery O2 Flow Rate FiO2 12/22/16 07:51 36.8 95 18 133/73 (93) 96 Room Air 12/22/16 04:00 Room Air 12/22/16 02:34 36.5 62 15 132/65 (87) 99 Room Air 12/22/16 00:00 Room Air 12/21/16 22:05 36.6 72 18 141/70 (93) 96 Room Air 12/21/16 21:54 Room Air 12/21/16 21:46 88 16 134/71 95 Room Air 12/21/16 20:10 76 16 173/72 96 Room Air 12/21/16 18:38 64 18 158/84 95 Room Air 12/21/16 17:18 64 18 166/78 95 6/3/17 15:22 69 18 189/94 100 Room Air 12/21/16 13:40 94 Room Air 12/21/16 13:28 73 12/21/16 13:24 36.9 81 18 149/125 98 Room Air Patient is left-handed. The patient is awake and alert. Speech is normal without aphasia or dysarthria. Mentation and thought processes are intact with orientation and normal fund of knowledge. Mood and affect are normal and appropriate. Appearance and grooming are normal. The discs are sharp with positive venous pulsations. There are no exudates, hemorrhages, or blood vessel changes seen. Pupils are 4mm bilaterally and reactive to light. Extraocular eye muscles are intact without nystagmus. Visual acuity and visual dee seem normal grossly to confrontation. There are no deficits to sensation of the face bilaterally. Corneal reflexes are positive bilaterally. Facial strength and symmetry is normal bilaterally. Hearing seems intact grossly to voice and finger rub. Palate moves well without astmmetry. There is normal sternocleidomastoid and trapezius strength bilaterally. Tongue is midline with good strength bilaterally. Neck is with full range of motion without discomfort. There are no cervical bruits. There are no cranial or ocular bruits. Heart is without murmur. Cervical, thoracic, and lumbar spine are nontender to palpation. Gait is narrow based. She is cautious but fairly stable. She has good arm swing and turns. Stance with eyes open is normal. She sways with eyes closed. With outstretched arms there is no drift. There are no resting, postural, or action tremors. There is no ataxia with [id number] testing. There is good facility in the hands. There are no abnormal involuntary movements noted. Motor strength is 5/5 diffusely in the arms bilaterally including deltoids, biceps, brachioradialis, wrist flexors and extensors, temporary receptionist, and intrinsic hand muscles. Motor strength is 5/5 diffusely in the legs bilaterally including hip flexors, quadriceps, hamstring, gastrocnemius, tibialis anterior, tibialis posterior, and peroneii muscles bilaterally. Toe extensors are normal and there is good bulk in the extensor digitorum brevis muscle bilaterally. The limbs have good tone without rigidity or spasticity, and there is no atrophy noted. Muscle bulk is normal, there is no tenderness, no myotonia noted to percussion, and no fasciculations seen. Sensory examination reveals a stocking decreased pinprick sense loss to the ankles bilaterally. Reflexes are 0/4 in the biceps, triceps, brachioradialis, quadriceps, and Achilles tendons bilaterally. Toes are downgoing with plantar stimulation bilaterally. Peripheral pulses are present and of normal quality distally in all four limbs. There is no peripheral edema noted. Laboratory Results Past 24 Hours: 12/22/16 05:23 Red Blood Count 3.05, Mean Corpuscular Volume 101.0, Mean Corpuscular Hemoglobin 33.1, Mean Corpuscular Hemoglobin Concent 32.8, Mean Platelet Volume 11.6 12/22/16 05:23 Test 12/21/16 14:17 12/21/16 14:21 12/21/16 16:35 12/22/16 05:23 Immature Granulocyte % (Auto) 0.5 % White Blood Count 2.12 K/uL (4.8-10.8) 2.30 K/uL (4.8-10.8) Red Blood Count 3.11 M/uL (4.2-5.4) 3.05 M/uL (4.2-5.4) Hemoglobin 10.3 g/dL (12.0-16.0) 10.1 g/dL (12.0-16.0) Hematocrit 31.1 % (37-47) 30.8 % (37-47) Mean Corpuscular Volume 100.0 fL (80-100) 101.0 fL (80-100) Mean Corpuscular Hemoglobin 33.1 pg (25-34) 33.1 pg (25-34) Mean Corpuscular Hemoglobin Concent 33.1 g/dl (32-36) 32.8 g/dl (32-36) Platelet Count 87 K/uL (130-400) 88 K/uL (130-400) Neutrophils (%) (Auto) 51.4 % Lymphocytes (%) (Auto) 36.3 % Monocytes (%) (Auto) 7.5 % Eosinophils (%) (Auto) 3.8 % Basophils (%) (Auto) 0.5 % Neutrophils # (Auto) 1.09 K/uL (1.4-6.5) Lymphocytes # (Auto) 0.77 K/uL (1.2-3.4) Monocytes # (Auto) 0.16 K/uL (0.11-0.59) Eosinophils # (Auto) 0.08 K/uL (0-0.5) Basophils # (Auto) 0.01 K/uL (0-0.2) Immature Granulocyte # (Auto) 0.01 K/uL (0.00-0.02) Platelet Estimate DECREASED Polychromasia 1+ Anisocytosis PRESENT Macrocytosis PRESENT Prothrombin Time 10.8 SECONDS (9.0-12.0) Prothromb Time International Ratio 1.0 (0.9-1.1) Activated Partial Thromboplast Time 24.6 SECONDS (21.0-31.0) Partial Thromboplastin Ratio 0.9 Phosphorus Level 1.6 mg/dl (2.5-4.9) Total Bilirubin 0.6 mg/dl (0.2-1) Direct Bilirubin 0.1 mg/dl (0-0.2) Aspartate Amino Transf (AST/SGOT) 30 U/L (15-37) Alanine Aminotransferase (ALT/SGPT) 26 U/L (12-78) Alkaline Phosphatase 76 U/L (45-117) Total Protein 6.3 gm/dl (6.4-8.2) Albumin 3.2 gm/dl (3.4-5.0) Thyroid Stimulating Hormone (TSH) 5.360 uIu/ml (0.300-4.500) Bedside Hemoglobin 9.9 g/dl (12.0-16.0) Bedside Hematocrit 29 % (37-47) Bedside Sodium 141 mEq/L (135-144) Bedside Potassium 4.0 mEq/L (3.3-5.0) Bedside Chloride 106 mEq/L (101-112) Bedside Total CO2 23 mEq/l (24-31) Bedside Blood Urea Nitrogen 14 mg/dl (7-18) Bedside Creatinine 1.1 mg/dl (0.6-1.3) Bedside Glucose (other) 88 mg/dl (70-99) Bedside Ionized Calcium (Rajani) 1.17 mmol/l (1.12-1.32) Urine Color YELLOW Urine Appearance CLEAR (CLEAR) Urine pH 6.5 (4.5-7.5) Urine Specific [place] 1.011 (1.000-1.030) Urine Protein 2+ (NEG) Urine Glucose (UA) NEG (NEG) Urine Ketones NEG (NEG) Urine Occult Blood 2+ (NEG) Urine Nitrite NEG (NEG) Urine Bilirubin NEG (NEG) Urine Urobilinogen NEG (NEG) Urine Leukocyte Esterase NEG (NEG) Urine WBC (Auto) 1-5 /hpf (0-5) Urine RBC (Auto) 10-30 /hpf (0-4) Urine Hyaline Casts (Auto) 1-5 /lpf (0-5) Urine Epithelial Cells (Auto) 20-30 /lpf (0-5) Urine Bacteria (Auto) NEG (NEG) Mean Platelet Volume 11.6 fL (7.4-10.4) RDW Standard Deviation 55.0 fL (36.4-46.3) RDW Coefficient of Variation 15.1 % (11.5-14.5) Nucleated RBC Absolute Count (auto) 0.02 K/uL (0-0) Neutrophils % (Manual) 51.0 % Lymphocytes % (Manual) 44.0 % Monocytes % (Manual) 5.0 % Nucleated Red Blood Cells % 0.7 % Neutrophils # (Manual) 1.17 K/uL (1.4-6.5) Total Absolute Neutrophils 1.17 K/uL (1.4-6.5) Lymphocytes # (Manual) 1.01 K/uL (1.2-3.4) Total Absolute Lymphocytes 1.01 K/uL (1.2-3.4) Monocytes # (Manual) 0.12 K/uL (0.11-0.59) Red Blood Cell Morphology Unremarkable Anion Gap 7.0 mmol/L (3-11) Est Creatinine Clear Calc Drug Dose 48.6 ml/min Estimated GFR () 50.6 Estimated GFR (Non- 43.6 BUN/Creatinine Ratio 10.2 (10-20) Calcium Level 8.2 mg/dl (8.5-10.1) Magnesium Level 2.3 mg/dl (1.8-2.4) Test 12/22/16 06:35 Bedside Glucose 86 mg/dl (70-90) Imaging MRI OF THE BRAIN COMBO CLINICAL HISTORY: New onset seizure. Reported history of metastatic colon cancer. COMPARISON STUDY: CT of the brain dated 12/21/2016. TECHNIQUE: MRI of the brain was performed utilizing various T1 and T2-weighted sequences in the axial, sagittal, and coronal planes. Contrast-enhanced sequences were acquired following the administration of 9.6 cc of Gadavist. The examination is performed using the seizure protocol. FINDINGS: Brain parenchyma: There are age-related involutional changes noting minimal subcortical and periventricular microangiopathic disease. There is no hemorrhage or mass effect. There is no restricted diffusion to suggest acute ischemia. No enhancing mass lesion is identified on the postcontrast images. Adams-white matter differentiation is preserved. No extra-axial fluid collection is seen. The cerebellar tonsils are normal in configuration. A developmental venous anomaly is incidentally noted in the right cerebellar hemisphere. The hippocampi are normal and symmetric. Ventricles, sulci, and cisterns: Prominent secondary to involutional change. Pituitary and sella: Unremarkable. Intracranial vasculature: Normal flow voids are maintained at the skull base. Orbits: The bony orbits are grossly intact. Orbital contents are normal in appearance. Sinuses and mastoids: There is a small retention cyst in the right maxillary antrum. The paranasal sinuses are otherwise clear. The mastoid air cells are well pneumatized. Calvarium: Unremarkable. Cervical cord: Partially visualized cervical spinal cord is normal in morphology and signal intensity. IMPRESSION: No acute intracranial abnormality. Specifically, there is no evidence of intracranial metastatic disease. Electronically signed by: Zack Arita M.D. 12/21/2016 6:30 PM Impression 1. New onset generalized tonic-clonic seizure of uncertain etiology. The patient has no evidence of intracerebral abnormalities such as tumor/ metastasis or stroke. In fact, she has no evidence of any previous cerebrovascular disease or other abnormalities. Although a vast and can be associated with seizures, it is usually associated with a posterior reversible encephalopathy syndrome and hypertension. The patient had no evidence of PRES on MRI. Her blood pressure was elevated on admission but this is quite normal today. Currently, the patient has no focal neurologic signs, meningeal signs, or encephalopathy. I suspect her seizure was secondary. She was active had not been eating, it was warm out and her sugar may have dropped to low. We note relatively low calcium and phosphorus on admission as well. She has anemia likely from her chemotherapy. All of these factors may contribute to the secondary seizure. 2. Recent balance issues and numbness in the feet. 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 This creates a sensory ataxia and affects balance. 3. History of colon cancer with lung metastases being treated with chemotherapy. 4. Long-standing history of diabetes with probable hypoglycemic episodes. 5. Elevated blood pressure on admission. The patient has no history of hypertension as far she remembers. Plan 1. Since the patient is back to baseline and desires to the home, I see no reason to keep her for additional testing from a neurologic standpoint. There is no indication for lumbar puncture as she has no signs of infection or meningeal signs. An EEG could be done but at this point it will likely be unremarkable. This could also be done as an outpatient. 2. I see no reason to initiate an anticonvulsant at this time. 3. Control glucose as best as possible and avoid hypoglycemic episodes 4. Replace calcium and phosphorus as necessary 5. Follow-up with her oncologist. I have no further neurologic testing or treatment recommendations to make at this time I've discussed this case with Dr. Romero regarding differential diagnoses and treatment options. I could follow this patient as an outpatient, if desired. She could also seek neurologic follow-up in [place], arranged by her primary care physician.
--- NOTE | 2016-12-22 09:36 | Discharge Instructions ---
Discharge Instructions Date of Service Dec 22, 2016. Admission Reason for Admission: New Onset Seizure, Pancytopenia Discharge Discharge Diagnosis / Problem: syncope(passing out) Discharge Goals Goal(s): Diagnostic testing, Therapeutic intervention Activity Recommendations Activity Limitations: resume your previous activity . Current Hospital Diet Patient's current hospital diet: Diabetes Type 2 Diet, AHA Diet (Heart Healthy) Discharge Diet Recommended Diet: Diabetes Type 2 Diet Pending Studies Studies pending at discharge: no Medical Emergencies . Who to Call and When: Medical Emergencies: If at any time you feel your situation is an emergency, please call 911 immediately. . Non-Emergent Contact Non-Emergency issues call your: Primary Care Provider Call Non-Emergent contact if: temperature is above 101, your pain is unusual for you . . "Provider Documentation" section prepared by Emir Romero. . VTE Core Measure Inpt VTE Proph given/why not?: Garcia Mendez, SCD's
[2016-12-22 12:10] VITALS: BP 133/73; PULSE 95; TEMP 36.8; O2SAT 96
--- NOTE | 2016-12-22 15:38 | Progress Note ---
Subjective Date of Service: Dec 22, 2016. Problem List Medical Problems: (1) New onset seizure Status: Acute Objective Vital Signs Date Time Temp Pulse Resp B/P (MAP) Pulse Ox O2 Delivery O2 Flow Rate FiO2 12/22/16 04:00 Room Air 12/22/16 02:34 36.5 62 15 132/65 (87) 99 Room Air 12/22/16 00:00 Room Air 12/21/16 22:05 36.6 72 18 141/70 (93) 96 Room Air 12/21/16 21:54 Room Air 12/21/16 21:46 88 16 134/71 95 Room Air 12/21/16 20:10 76 16 173/72 96 Room Air 12/21/16 18:38 64 18 158/84 95 Room Air 12/21/16 17:18 64 18 166/78 95 12/21/16 15:22 69 18 189/94 100 Room Air 12/21/16 13:40 94 Room Air 12/21/16 13:28 73 12/21/16 13:24 36.9 81 18 149/125 98 Room Air Laboratory Results Last 24 Hours Test 12/21/16 14:16 12/21/16 14:17 12/21/16 14:21 12/21/16 16:35 Bedside Glucose 89 mg/dl White Blood Count 2.12 K/uL Red Blood Count 3.11 M/uL Hemoglobin 10.3 g/dL Hematocrit 31.1 % Mean Corpuscular Volume 100.0 fL Mean Corpuscular Hemoglobin 33.1 pg Mean Corpuscular Hemoglobin Concent 33.1 g/dl Platelet Count 87 K/uL Neutrophils (%) (Auto) 51.4 % Lymphocytes (%) (Auto) 36.3 % Monocytes (%) (Auto) 7.5 % Eosinophils (%) (Auto) 3.8 % Basophils (%) (Auto) 0.5 % Neutrophils # (Auto) 1.09 K/uL Lymphocytes # (Auto) 0.77 K/uL Monocytes # (Auto) 0.16 K/uL Eosinophils # (Auto) 0.08 K/uL Basophils # (Auto) 0.01 K/uL RDW Standard Deviation 53.5 fL RDW Coefficient of Variation 14.9 % Immature Granulocyte % (Auto) 0.5 % Immature Granulocyte # (Auto) 0.01 K/uL Platelet Estimate DECREASED Polychromasia 1+ Anisocytosis PRESENT Macrocytosis PRESENT Prothrombin Time 10.8 SECONDS Prothromb Time International Ratio 1.0 Activated Partial Thromboplast Time 24.6 SECONDS Partial Thromboplastin Ratio 0.9 Sodium Level 143 mmol/L Potassium Level 4.2 mmol/L Chloride Level 110 mmol/L Carbon Dioxide Level 24 mmol/L Anion Gap 9.0 mmol/L 18.0 mmol/L Blood Urea Nitrogen 14 mg/dl Creatinine 1.20 mg/dl Est Creatinine Clear Calc Drug Dose 52.9 ml/min Estimated GFR () 55.7 Estimated GFR (Non- 48.1 BUN/Creatinine Ratio 11.3 Random Glucose 88 mg/dl Calcium Level 8.4 mg/dl Phosphorus Level 1.6 mg/dl Magnesium Level 1.9 mg/dl Total Bilirubin 0.6 mg/dl Direct Bilirubin 0.1 mg/dl Aspartate Amino Transf (AST/SGOT) 30 U/L Alanine Aminotransferase (ALT/SGPT) 26 U/L Alkaline Phosphatase 76 U/L Total Protein 6.3 gm/dl Albumin 3.2 gm/dl Thyroid Stimulating Hormone (TSH) 5.360 uIu/ml Bedside Hemoglobin 9.9 g/dl Bedside Hematocrit 29 % Bedside Sodium 141 mEq/L Bedside Potassium 4.0 mEq/L Bedside Chloride 106 mEq/L Bedside Total CO2 23 mEq/l Bedside Blood Urea Nitrogen 14 mg/dl Bedside Creatinine 1.1 mg/dl Bedside Glucose (other) 88 mg/dl Bedside Ionized Calcium (Rajani) 1.17 mmol/l Urine Color YELLOW Urine Appearance CLEAR Urine pH 6.5 Urine Specific [place] 1.011 Urine Protein 2+ Urine Glucose (UA) NEG Urine Ketones NEG Urine Occult Blood 2+ Urine Nitrite NEG Urine Bilirubin NEG Urine Urobilinogen NEG Urine Leukocyte Esterase NEG Urine WBC (Auto) 1-5 /hpf Urine RBC (Auto) 10-30 /hpf Urine Hyaline Casts (Auto) 1-5 /lpf Urine Epithelial Cells (Auto) 20-30 /lpf Urine Bacteria (Auto) NEG Test 12/21/16 20:03 12/21/16 22:48 12/22/16 05:23 12/22/16 06:35 Bedside Glucose 67 mg/dl 178 mg/dl 86 mg/dl White Blood Count 2.30 K/uL Red Blood Count 3.05 M/uL Hemoglobin 10.1 g/dL Hematocrit 30.8 % Mean Corpuscular Volume 101.0 fL Mean Corpuscular Hemoglobin 33.1 pg Mean Corpuscular Hemoglobin Concent 32.8 g/dl Platelet Count 88 K/uL Mean Platelet Volume 11.6 fL RDW Standard Deviation 55.0 fL RDW Coefficient of Variation 15.1 % Nucleated RBC Absolute Count (auto) 0.02 K/uL Neutrophils % (Manual) 51.0 % Lymphocytes % (Manual) 44.0 % Monocytes % (Manual) 5.0 % Nucleated Red Blood Cells % 0.7 % Neutrophils # (Manual) 1.17 K/uL Total Absolute Neutrophils 1.17 K/uL Lymphocytes # (Manual) 1.01 K/uL Total Absolute Lymphocytes 1.01 K/uL Monocytes # (Manual) 0.12 K/uL Red Blood Cell Morphology Unremarkable Sodium Level 146 mmol/L Potassium Level 4.2 mmol/L Chloride Level 112 mmol/L Carbon Dioxide Level 27 mmol/L Anion Gap 7.0 mmol/L Blood Urea Nitrogen 13 mg/dl Creatinine 1.30 mg/dl Est Creatinine Clear Calc Drug Dose 48.6 ml/min Estimated GFR () 50.6 Estimated GFR (Non- 43.6 BUN/Creatinine Ratio 10.2 Random Glucose 85 mg/dl Calcium Level 8.2 mg/dl Magnesium Level 2.3 mg/dl Assessment and Plan 61 F with confusion and syncope, recent treatment for metastatic colon cancer syncope with shaking, CT of the head and MRI the brain, both show no intracranial abnormality, Consult neurology as she does have diabetes and this may also be glucose related phenomena, . Colon cancer with metastases to lung--her primary doctors are in [place]. Last chemotherapy was last week of november Diabetes mellitus--continue glimepiride hold metformin, follow glucose trends Depression/anxiety--continue citalopram and lorazepam.
--- NOTE | 2016-12-22 15:40 | Discharge Summary ---
Discharge Summary Date of Service Dec 22, 2016. Discharge Summary Admission Date: Dec 21, 2016 at 21:22 Discharge Date: Dec 22, 2016 Discharge Disposition: Home Principal Diagnosis: syncope Medication Reconciliation Continued Medications: Bevacizumab (Avastin) 100 Mg/4 Ml Inj Biotin (Biotin) 1,000 Mcg Tab 1000 MCG PO DAILY Cholecalciferol (Vitamin D3) 2,000 Unit Tab 2000 UNITS PO QID Citalopram Hydrobromide (Citalopram Hydrobromide) Unknown Strength Tab 1 TAB PO QID Cyanocobalamin (Vitamin B-12) 2,500 Mcg Sub 2500 MCG PO DAILY Diphenoxylate/Atropine (Lomotil) Tab 2 TAB PO QID PRN for Diarrhea Folic Acid (Folic Acid) 400 Mcg Tab 400 MCG PO DAILY Glimepiride (Glimepiride) 4 Mg Tab 1 TAB PO DAILY Hydrocodone/Acetaminophen 7.5MG/325MG ([place] 7.5MG/325MG) Tab 0.5 TAB PO Q6 PRN for Pain PRN PAIN Lorazepam (Ativan) 0.5 Mg Tab 0.5 MG PO QID PRN for Anxiety Meclizine Hcl (Meclizine Hcl) Unknown Strength Tab 1 TAB PO UD PRN for Nausea Metformin HCl (Metformin HCl) 500 Mg Tab 500 MG PO HS Omeprazole (Prilosec) 20 Mg Capcr 20 MG PO QID Discharge Exam Review of Systems: Constitutional: No fever, No chills Respiratory: No cough, No sputum, No wheezing Abdomen: No pain, No nausea, No vomiting Neurologic: No memory loss, No paralysis, No weakness Physical Exam: General Appearance: WD/WN, no apparent distress Eyes: PERRL, EOMI Neck: supple, no JVD Respiratory/Chest: chest non-tender, lungs clear, normal breath sounds Cardiovascular: regular rate, rhythm, no murmur Abdomen / GI: normal bowel sounds, non tender, soft Hospital Course 61 F with confusion and syncope, recent treatment for metastatic colon cancer syncope with shaking, CT of the head and MRI the brain, both show no intracranial abnormality, Consult neurology feels not acute seizure disorder, as she does have diabetes and this may also be glucose related phenomena, . Colon cancer with metastases to lung--her primary doctors are in [place]. Last chemotherapy was last week of november Diabetes mellitus--continue glimepiride hold metformin, follow glucose trends Depression/anxiety--continue citalopram and lorazepam. will discharge home, pt requests to arrange own follow up with neurology in [facility] Total Time Spent: Greater than 30 minutes This includes examination of the patient, discharge planning, medication reconciliation, and communication with other providers. Discharge Instructions Please refer to the electronic Patient Visit Report (Discharge Instructions) for additional information.
== END 2016-12-22 12:45 | disposition home or self-care (01) | DRG 312 ==
LOC: EDBD 13:15 → C.EDB 13:16 → C.2E 21:22 → ENRESERV 21:33
PROVIDERS: ADMIT Hospitalist; ATTEND Internal Medicine
DX: R55 Syncope and collapse (principal); C18.9 Malignant neoplasm of colon, unspecified; C78.00 Secondary malignant neoplasm of unspecified lung; R51 Headache; R11.2 Nausea with vomiting, unspecified; R26.81 Unsteadiness on feet; R03.0 Elevated blood-pressure reading, without diagnosis of hypertension; D64.9 Anemia, unspecified; G62.9 Polyneuropathy, unspecified; T45.1X5A Adverse effect of antineoplastic and immunosuppressive drugs, initial encounter; E11.9 Type 2 diabetes mellitus without complications; K21.9 Gastro-esophageal reflux disease without esophagitis; F41.9 Anxiety disorder, unspecified; F32.9 Major depressive disorder, single episode, unspecified; Z87.891 Personal history of nicotine dependence; Z79.84 Long term (current) use of oral hypoglycemic drugs; Z79.891 Long term (current) use of opiate analgesic; Z79.899 Other long term (current) drug therapy